=== PATIENT | male | born 1960 | race Caucasian/White ===

== ENCOUNTER → 2023-08-27 | Day surgery (SDC) | payer BC ==
[~2023-08-27] MED LIST: fentaNYL 100 MCG/2 ML VIAL ONE
== END | disposition home or self-care (01) ==
LOC: MSO 10:33
DX: D64.9 Anemia, unspecified (principal); K57.30 Diverticulosis of large intestine without perforation or abscess without bleeding
CPT/HCPCS: 00811; J2704; J3010; J7120